=== PATIENT | male | born 1975 | race Caucasian/White ===

== ENCOUNTER 2023-10-13 14:16 | Emergency (ER) | payer OTHER, SELFPAY ==
[2023-10-13] VITALS (16 sets, daily range): BP systolic 159–180; BP diastolic 99–109; PULSE 90–117; RESP 16–24; TEMP 35.7–36.8; O2SAT 95–98
--- NOTE | 2023-10-13 15:16 | ED.VIS.CHEST ---
HPI <JERRICA Mijares - Last Filed: 10/13/23 19:47> History of Present Illness Chief Complaint: Palpitations Narrative Narrative: Patient presenting today due to feeling like his heart was racing that started this afternoon while at work. He reports that he started to feel sweaty, his heart began to race, and he became concerned and called an ambulance. Reports that he is feeling improved but still does feel like his heart is beating quickly. 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 He denies any fevers, chills, chest pain, shortness of breath, abdominal pain, nausea, and vomiting. PE Risk Factors: Negative for Recent Travel/Surgery, Recent Immobilization, Prior DVT or PE or Cancer PFSH <JERRICA Mijares - Last Filed: 10/13/23 19:47> [facility] Medical History HTN (hypertension) Home Medications amlodipine 5 mg tablet 5 mg PO DINNER 10/13/23 [History Last Taken Unknown] Allergy/AdvReac Type Severity Reaction Status Date / Time Penicillins Allergy UNKNOWN Verified 10/13/23 14:18 Social History Smoking Status: Never smoker ROS <JERRICA Mijares - Last Filed: 10/13/23 19:47> ROS ED Constitutional Constitutional ED: Denies chills or fever(s) Eyes Eyes: Denies change in vision Cardiovascular Cardiovascular: Reports racing heartbeat; Denies chest pain Respiratory/Chest Respiratory/Chest: Denies cough or dyspnea Gastrointestinal Gastrointestinal: Denies abdominal pain, nausea or vomiting Genitourinary Genitourinary ED: Denies dysuria, hematuria or urinary urgency Musculoskeletal Musculoskeletal: Denies arthralgias or myalgias Integumentary Denies rash Neurologic Neurologic: Denies weakness EXAM <JERRICA Mijares - Last Filed: 10/13/23 19:47> Physical Exam Const Vital Signs: 10/13/23 14:20 10/13/23 14:58 10/13/23 14:59 Temperature 98.3 F Temperature Source Temporal Pulse Rate 117 H 112 H Respiratory Rate 22 H 18 Respiratory Effort Normal Non-Labored Blood Pressure 175/104 H 164/109 H Blood Pressure Mean 127 127 Pulse Ox 95 98 Oxygen Delivery Method Room Air Room Air 10/13/23 15:14 10/13/23 15:02 10/13/23 15:10 Temperature Temperature Source Pulse Rate 115 H 102 H Respiratory Rate 20 H 16 Respiratory Effort Blood Pressure Blood Pressure Mean Pulse Ox 97 98 Oxygen Delivery Method Room Air 10/13/23 15:20 10/13/23 15:30 10/13/23 15:40 Temperature Temperature Source Pulse Rate 110 H 103 H 90 Respiratory Rate 18 20 H 17 Respiratory Effort Blood Pressure 165/106 H Blood Pressure Mean 124 Pulse Ox 98 96 98 Oxygen Delivery Method 10/13/23 15:50 10/13/23 16:00 10/13/23 16:54 Temperature Temperature Source Pulse Rate 114 H 105 H 113 H Respiratory Rate 17 20 H 24 H Respiratory Effort Blood Pressure 161/106 H 159/104 H Blood Pressure Mean 118 122 Pulse Ox 98 98 Oxygen Delivery Method Room Air 10/13/23 17:00 10/13/23 17:12 10/13/23 17:54 Temperature Temperature Source Pulse Rate 104 H 106 H 106 H Respiratory Rate 24 H 19 H 21 H Respiratory Effort Blood Pressure 178/99 H 180/108 H Blood Pressure Mean 125 132 Pulse Ox 98 97 96 Oxygen Delivery Method Room Air Room Air Room Air 10/13/23 18:00 10/13/23 18:44 10/13/23 19:02 Temperature 96.3 F L Temperature Source Pulse Rate 105 H 102 H 100 Respiratory Rate 19 H 19 H 23 H Respiratory Effort Blood Pressure 173/108 H 161/106 H 159/106 H Blood Pressure Mean 129 124 123 Pulse Ox 97 97 97 Oxygen Delivery Method Room Air Room Air Positive well nourished, well developed and no apparent distress General Appearance ED: well developed HEENT Reports normocephalic and head/scalp atraumatic Mouth ED: Yes moist mucous membranes normal Eyes PERRL and EOMs intact bilaterally Neck full ROM and supple Chest Wall inspection of chest normal Resp normal respiratory effort and clear to auscultation bilaterally Cardio regular rhythm Rate: tachycardic GI soft to palpation, non-tender, non-distended and no masses Back/Spine normal ROM and normal to inspection Extremity normal to inspection and full ROM Neuro oriented x3, CN's II-XII intact bilaterally, moves all extremities, no focal motor deficits and no sensory deficits noted Sensorium / Orientation: awake and alert Psych mental status grossly normal and thought process normal Skin no rashes or lesions noted and no wounds <Dr. Lio Mayo DO - Last Filed: 10/13/23 22:02> Physical Exam Const Vital Signs: 10/13/23 14:20 10/13/23 14:58 10/13/23 14:59 Temperature 98.3 F Temperature Source Temporal Pulse Rate 117 H 112 H Respiratory Rate 22 H 18 Respiratory Effort Normal Non-Labored Blood Pressure 175/104 H 164/109 H Blood Pressure Mean 127 127 Pulse Ox 95 98 Oxygen Delivery Method Room Air Room Air 10/13/23 15:14 10/13/23 15:02 10/13/23 15:10 Temperature Temperature Source Pulse Rate 115 H 102 H Respiratory Rate 20 H 16 Respiratory Effort Blood Pressure Blood Pressure Mean Pulse Ox 97 98 Oxygen Delivery Method Room Air 10/13/23 15:20 10/13/23 15:30 10/13/23 15:40 Temperature Temperature Source Pulse Rate 110 H 103 H 90 Respiratory Rate 18 20 H 17 Respiratory Effort Blood Pressure 165/106 H Blood Pressure Mean 124 Pulse Ox 98 96 98 Oxygen Delivery Method 10/13/23 15:50 10/13/23 16:00 10/13/23 16:54 Temperature Temperature Source Pulse Rate 114 H 105 H 113 H Respiratory Rate 17 20 H 24 H Respiratory Effort Blood Pressure 161/106 H 159/104 H Blood Pressure Mean 118 122 Pulse Ox 98 98 Oxygen Delivery Method Room Air 10/13/23 17:00 10/13/23 17:12 10/13/23 17:54 Temperature Temperature Source Pulse Rate 104 H 106 H 106 H Respiratory Rate 24 H 19 H 21 H Respiratory Effort Blood Pressure 178/99 H 180/108 H Blood Pressure Mean 125 132 Pulse Ox 98 97 96 Oxygen Delivery Method Room Air Room Air Room Air 10/13/23 18:00 10/13/23 18:44 10/13/23 19:02 Temperature 96.3 F L Temperature Source Pulse Rate 105 H 102 H 100 Respiratory Rate 19 H 19 H 23 H Respiratory Effort Blood Pressure 173/108 H 161/106 H 159/106 H Blood Pressure Mean 129 124 123 Pulse Ox 97 97 97 Oxygen Delivery Method Room Air Room Air MDM <Zayra Mauricio PA - Last Filed: 10/13/23 19:47> MDM MDM Narrative Medical decision making narrative: Patient presenting due to tachycardia. He is well-appearing and in no acute distress. He is tachycardic around 117 bpm. 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 Workup will be obtained to rule out leukocytosis, anemia, electrolyte abnormality, SHASHI, and thyroid abnormality. His labs overall are unremarkable. He did tell the attending physician he has a history of alcohol use but reportedly only drinks 1-2 drinks per night. He does not feel like he is in withdrawal and has never had withdrawal symptoms before. However, we did give him a dose of Ativan to see if this would help his symptoms. Urine drug screening was obtained and is negative. He was given IV fluids and this did seem to improve his heart rate. He did report feeling dehydrated. He also reported that he has been stressed out at work and does not know if that has anything to do with this, no previous history of panic attacks or anxiety. He does have a follow-up appointment with his PCP tomorrow. I have encouraged him to follow-up with them as he may need further workup. Return instructions discussed and he will be discharged home in stable condition. He is comfortable with plan. Lab Data Attestation: I reviewed the patient's lab results. Lab results narrative: Potassium 3.3, troponin 39, TSH 1.97, urine toxicology screen negative Labs: Laboratory Results - last 24 hr 10/13/23 10/13/23 10/13/23 15:45 18:00 18:10 WBC 6.8 RBC 4.55 L Hgb 15.3 Hct 41.6 MCV 91.4 MCH 33.6 H MCHC 36.8 H RDW Std Deviation 37.0 RDW Coeff of Arleen 11.0 L Plt Count 222 MPV 10.2 Immature Gran % (Auto) 0.600 Neut % (Auto) 73.6 H Lymph % (Auto) 16.8 L Ritchie % (Auto) 6.8 Eos % (Auto) 1.3 Baso % (Auto) 0.9 Absolute Neuts (auto) 5.0 Absolute Lymphs (auto) 1.14 Nucleated RBC % 0 Sodium 142 Potassium 3.3 L Chloride 109 H Carbon Dioxide 29.0 Anion Gap 4 L BUN 15 Creatinine 1.12 Est GFR (MDRD) Af Amer 90 Est GFR (MDRD) Non-Af 74 BUN/Creatinine Ratio 13.4 Glucose 168 H Calcium 8.9 Troponin I High Sens 36 39 TSH 1.97 Free T4 0.84 Urine Opiates Screen NEGATIVE Urine Methadone Screen NEGATIVE Ur Barbiturates Screen NEGATIVE Ur Phencyclidine Scrn NEGATIVE Ur Amphetamines Screen NEGATIVE MDMA (Ecstasy) Screen NEGATIVE U Benzodiazepines Scrn NEGATIVE Urine Cocaine Screen NEGATIVE U Cannabinoids Screen NEGATIVE Ur Drug Screen Comment Ethyl Alcohol < 3.0 Radiography X-Ray: Read by ED Physician Diagnostic Testing: Clinical Impression(s) from Imaging Studies Chest X-Ray 10/13/23 15:45 IMPRESSION: No radiographic evidence of acute cardiopulmonary disease. Electronically Signed: Dirk Powell MD at 16:51 EDT , EKG Initial EKG: Comments: 117 bpm, sinus tachycardia, no ST elevation, reviewed and interpreted by attending ED physician <Dr. Lio Mayo, DO - Last Filed: 10/13/23 22:02> [facility] MDM Narrative Medical decision making narrative: I did not patient presenting due to tachycardia. He is well-appearing and in no acute distress. He is tachycardic around 117 bpm. 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 Workup will be obtained to rule out leukocytosis, anemia, electrolyte abnormality, SHASHI, and thyroid abnormality. His labs overall are unremarkable. He did tell the attending physician he has a history of alcohol use but reportedly only drinks 1-2 drinks per night. He does not feel like he is in withdrawal and has never had withdrawal symptoms before. However, we did give him a dose of Ativan to see if this would help his symptoms. Urine drug screening was obtained and is negative. He was given IV fluids and this did seem to improve his heart rate. He did report feeling dehydrated. He also reported that he has been stressed out at work and does not know if that has anything to do with this, no previous history of panic attacks or anxiety. He does have a follow-up appointment with his PCP tomorrow. I have encouraged him to follow-up with them as he may need further workup. Return instructions discussed and he will be discharged home in stable condition. He is comfortable with plan. ED attending note: I evaluated the patient in conjunction with the SHAUN. I agree with his/her statements and above findings. I have personally performed a face to face assessment of the patient and have reviewed the SHAUN Note. I performed a substantive portion of the visit including all aspects of the following. I personally saw the patient performed chart review, physical exam, reviewed labs, imaging (if obtained), and formulated a treatment and management plan. This note was generated with [employer] dictation software. It may contain incorrect words, spelling, and punctuation that were not noted in review of the chart prior to signing. Lab Data Labs: Laboratory Results - last 24 hr 10/13/23 10/13/23 10/13/23 15:45 18:00 18:10 WBC 6.8 RBC 4.55 L Hgb 15.3 Hct 41.6 MCV 91.4 MCH 33.6 H MCHC 36.8 H RDW Std Deviation 37.0 RDW Coeff of Arleen 11.0 L Plt Count 222 MPV 10.2 Immature Gran % (Auto) 0.600 Neut % (Auto) 73.6 H Lymph % (Auto) 16.8 L Ritchie % (Auto) 6.8 Eos % (Auto) 1.3 Baso % (Auto) 0.9 Absolute Neuts (auto) 5.0 Absolute Lymphs (auto) 1.14 Nucleated RBC % 0 Sodium 142 Potassium 3.3 L Chloride 109 H Carbon Dioxide 29.0 Anion Gap 4 L BUN 15 Creatinine 1.12 Est GFR (MDRD) Af Amer 90 Est GFR (MDRD) Non-Af 74 BUN/Creatinine Ratio 13.4 Glucose 168 H Calcium 8.9 Troponin I High Sens 36 39 TSH 1.97 Free T4 0.84 Urine Opiates Screen NEGATIVE Urine Methadone Screen NEGATIVE Ur Barbiturates Screen NEGATIVE Ur Phencyclidine Scrn NEGATIVE Ur Amphetamines Screen NEGATIVE MDMA (Ecstasy) Screen NEGATIVE U Benzodiazepines Scrn NEGATIVE Urine Cocaine Screen NEGATIVE U Cannabinoids Screen NEGATIVE Ur Drug Screen Comment Ethyl Alcohol < 3.0 Radiography Diagnostic Testing: Clinical Impression(s) from Imaging Studies Chest X-Ray 10/13/23 15:45 IMPRESSION: No radiographic evidence of acute cardiopulmonary disease. Electronically Signed: Dirk Powell MD at 16:51 EDT , Discharge Plan Triage Chief Complaint: Palpitations ED Midlevel Provider: Zayra Mauricio ED Provider: Lio Mayo Dx/Rx/DC Orders Clinical Impression: Tachycardia, Hypertension Instructions: Understanding Tachycardia, ED Hypertension, Established Prescriptions: No Action amlodipine 5 mg tablet 5 mg PO DINNER Primary Care Provider: Loi Ritter Referrals: Loi Ritter MD [Primary Care Provider] - Activity Restrictions/Additional Instructions: Follow-up with PCP and return for any worsening of symptoms. Disposition Disposition: Home, Self Care Discharge Date/Time: 10/13/23 19:11
[2023-10-13] MEDS: 0.9% Normal Saline (1000mL) 1,000 ML 1000 ML IV (15:45)
--- NOTE | 2023-10-13 15:45 | RAD_ITS ---
EXAM: XR CHEST, 1 VIEW CLINICAL INDICATION: chest pain TECHNIQUE: Frontal view of the chest. COMPARISON: No relevant prior studies available. FINDINGS: LUNGS AND PLEURAL SPACES: Unremarkable. No consolidation or edema. No pneumothorax. No effusion. HEART: Unremarkable. Cardiac silhouette not enlarged. MEDIASTINUM: Central airways and mediastinal contour are unremarkable. BONES/JOINTS: Unremarkable. No acute fracture. SOFT TISSUES: Unremarkable. RAD/Chest 1 View (Portable) IMPRESSION: No radiographic evidence of acute cardiopulmonary disease. Electronically Signed: Dirk Powell MD at 16:51 EDT ,
[2023-10-13 15:54] LABS: Absolute Lymphocyte Count 1.14 X10^3/uL (0.83-4.51); Basophil# 0.06 X10^3/uL; Basophil% 0.9 % (0-1); Eosinophil# 0.09 X10^3/uL; Eosinophils% 1.3 % (0-5); Hematocrit 41.6 % (40-54); Hemoglobin 15.3 g/dL (13.0-16.5); Lymphocyte # 1.14 X10^3/ul (0.83-4.51); Lymphocyte % 16.8 % (19-41); Mean Corp Hgb Conc 36.8 g/dL (32-36); Mean Corpuscular Hgb 33.6 pg (27.0-32.0); Mean Corpuscular Volume 91.4 fL (80-94); Mean Platelet Vol. 10.2 fl (6.2-12.0); Monocyte# 0.46 X10^3/uL; Monocyte% 6.8 % (0-10); NRBC Flagged by Analyzer 0 % (0-5); Neutrophil # 4.98 X10^3/uL (2.7-7.7); Neutrophil % 73.6 % (47-70); Platelet Count 222 K/mm3 (150-450); Red Blood Count 4.55 M/mm3 (4.6-6.2); White Blood Count 6.8 K/mm3 (4.4-11.0)
[2023-10-13 16:21] LABS: Anion Gap 4 (5-15); BUN 15 mg/dL (7-18); BUN/Creat Ratio 13.4 RATIO (10-20); Calcium,Total 8.9 mg/dL (8.5-10.1); Chloride 109 mmol/L (98-107); Creatinine, Serum 1.12 mg/dL (0.70-1.30); EST Glomerular Filtration Rate 74 mL/min (>60); Est Glom Filt Rate - Afr Amer 90 mL/min (>60); Glucose 168 mg/dL (74-106); Potassium 3.3 mmol/L (3.5-5.1); Sodium Level 142 mmol/L (136-145); Troponin-I HS (w/2H Reflex) 36 pg/mL (3.0-78.0)
[2023-10-13] MEDS: Lorazepam 2 MG/ML WCH Syringe 1 MG IV (17:25)
[2023-10-13 17:50] LABS: T4 Free Direct 0.84 ng/dL (0.76-1.46); Thyroid Stim Hormone (TSH) 1.97 uIU/mL (0.358-3.74)
[2023-10-13 17:51] LABS: Reflex Troponin-HS? (from REC) Y
[2023-10-13] MEDS: amLODIPine 5 MG Tablet PO (17:55)
[2023-10-13 18:32] LABS: Troponin-I HS 39 pg/mL (3.0-78.0)
[2023-10-13 18:35] LABS: Alcohol, Blood (Medical)-Serum < 3.0 mg/dL
[2023-10-13 18:39] LABS: Amphetamine Urine VISTA NEGATIVE (<1000 ng/mL); Barbiturate Urine VISTA NEGATIVE (< 200 ng/mL); Benzodiazepine Urine VISTA NEGATIVE (< 200 ng/mL); Cocaine Urine VISTA NEGATIVE (< 300 ng/mL); Ecstacy Urine VISTA NEGATIVE (< 500 ng/mL); Methadone Urine VISTA NEGATIVE (< 300 ng/mL); PCP Urine VISTA NEGATIVE (< 25 ng/mL); THC Urine VISTA NEGATIVE (< 50 ng/mL); Vista UDS pH Range 6
== END 2023-10-13 19:11 | disposition home or self-care (01) ==
PROVIDERS: Physician Assistant; Emergency Provider Emergency Medicine; PCP Family Medicine; Visit Provider Emergency Medicine
DX: R00.0 Tachycardia, unspecified (principal); I10 Essential (primary) hypertension; Z79.899 Other long term (current) drug therapy
CPT/HCPCS: 71045; 80048; 80307; 80320; 84439; 84443; 84484; 85025; 93005; 96361; 96374; 99283; J7030; A4216; G0480